=== PATIENT | female | born 2000 | race Hispanic/Latino ===

== ENCOUNTER 2021-09-14 13:05 | Emergency (ER) | payer SELFPAY | END 2021-09-14 14:05 | disposition home or self-care (01) | LOC: CSHERS 13:05 | DX: O20.0 Threatened abortion (principal); Z3A.01 Less than 8 weeks gestation of pregnancy | CPT/HCPCS: 84702; 99284 ==

== ENCOUNTER 2021-11-02 21:40 | Emergency (ER) | payer OTHER ==
[2021-11-02] MEDS ORDERED: Ondansetron PF 4 MG/2 ML Vial ONE (21:58)
[2021-11-02] MEDS ORDERED: Fentanyl 100 MCG/2 ML VIAL ONE (22:03)
[2021-11-02 22:55] LABS: BHCG - Serum Negative (NEGATIVE); Pregs Control Background? CLEAR/WHITE (CLR/WHITE); Pregs Control Bar Appear? YES (CONTROL BAR)
== END 2021-11-03 00:15 | disposition home or self-care (01) ==
LOC: CSHERS 21:40
DX: M54.2 Cervicalgia (principal); R10.9 Unspecified abdominal pain; V89.2XXA Person injured in unspecified motor-vehicle accident, traffic, initial encounter
CPT/HCPCS: 36415; 70450; 71260; 72125; 74177; 84703; 96374; 96375; J2405; J3010